=== PATIENT | male | born 1960 | race African-American/Black ===

== ENCOUNTER 2016-07-16 09:57 | Outpatient (CLI) | payer OTHER ==
[2016-07-16 11:27] LABS: Hemoglobin A1c 7.4 % (4.0-6.0)
== END 2016-07-16 09:58 | disposition home or self-care (01) ==
LOC: NAV LAB 09:57
PROVIDERS: ATTEND Family Medicine
DX: Z11.59 Encounter for screening for other viral diseases (principal)
CPT/HCPCS: 80061; 83036; 86803

== ENCOUNTER 2016-11-12 20:25 | Outpatient (CLI) | payer SELFPAY ==
[2016-11-12 21:39] LABS: Anion Gap 19 mmol/L (10-20); BUN (Urea Nitrogen) 18 mg/dL (8.4-25.7); Calc. Creatinine Clearance 0 mL/min (70-130); Calcium 10.2 mg/dL (7.8-10.44); Carbon Dioxide 23 mmol/L (22-29); Chloride 99 mmol/L (98-107); Estimated GFR-MDRD 54; Glucose 314 mg/dL (70-105); Potassium 4.3 mmol/L (3.5-5.1); Sodium 137 mmol/L (136-145)
== END 2016-11-12 20:26 | disposition home or self-care (01) ==
LOC: NAV ERS 20:25
PROVIDERS: ATTEND Family Medicine
DX: E11.65 Type 2 diabetes mellitus with hyperglycemia (principal)
CPT/HCPCS: 36415; 80048; 83036

== ENCOUNTER 2017-02-16 12:30 | Outpatient (CLI) | payer OTHER ==
[2017-02-16 15:27] LABS: Hemoglobin A1c 6.7 % (4.0-6.0)
== END 2017-02-16 12:31 | disposition home or self-care (01) ==
LOC: NAV LAB 12:30
PROVIDERS: ATTEND Family Medicine
DX: E11.65 Type 2 diabetes mellitus with hyperglycemia (principal)
CPT/HCPCS: 36415; 83036